=== PATIENT | female | born 1990 | race Caucasian/White ===

== ENCOUNTER 2016-10-12 01:24 | Emergency (ER) | payer OTHER ==
[2016-10-12 01:34] VITALS: BP 135/113; PULSE 112; RESP 18; TEMP 97.7; O2SAT 96
[2016-10-12] MEDS ORDERED: LORazepam 1 MG TAB PO ONE (02:56)
--- NOTE | 2016-10-12 03:01 | EDPHY ---
H & P Stated Complaint: MUSCLE CRAMPS TO L ARM AND FIDGETY ALL OVER, ANXIETY Time Seen by Provider: 10/12/16 02:29 HPI/ROS: HPI The patient presents with left-sided arm muscle spasms which have been present for the last 4 hours which is described as a jerky sensation throughout the muscles of her left arm. She does feel some tingling as well. She does not have any numbness. She tried taking a bath and doing some reading, however neither of these helped her symptoms so she comes into the emergency room. She has had several of these episodes before. 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 Her doctor did increase her lithium dose yesterday because of subtherapeutic level. She does not have any headache.. REVIEW OF SYSTEMS Constitutional: No fever, no chills. Eyes: No discharge. ENT: No sore throat. Cardiovascular: No chest pain, no palpitations. Respiratory: No cough, no shortness of breath. Gastrointestinal: No abdominal pain, no vomiting. Genitourinary: No hematuria. Musculoskeletal: No back pain. Skin: No rashes. Neurological: No headache. PMHx: Bipolar disorder, PTSD Soc Hx: Marginally housed PHYSICAL General Appearance: Alert, no distress, occasionally jerking her arm Eyes: Pupils equal and round no pallor or injection ENT, Mouth: Mucous membranes moist Respiratory: There are no retractions, lungs are clear to auscultation Cardiovascular: Regular rate and rhythm Gastrointestinal: Abdomen is soft and non-tender, no masses, bowel sounds normal Neurological: A&O, moves all extremities Skin: Warm and dry, no rashes Musculoskeletal: Neck is supple non tender Extremities: symmetrical, full range of motion of her left arm, sensation is intact to light touch Psychiatric: Patient is oriented X 3, there is no agitation Source: Patient Exam Limitations: No limitations - Personal History LMP (Females 10-55): Irregular Current Tetanus/Diphtheria Vaccine: Yes Current Tetanus Diphtheria and Acellular Pertussis (TDAP): Yes - Medical/Surgical History Hx Asthma: No Hx Chronic Respiratory Disease: No Hx Diabetes: No Hx Cardiac Disease: No Hx Renal Disease: No Hx Cirrhosis: No Hx Alcoholism: No Hx HIV/AIDS: No Hx Splenectomy or Spleen Trauma: No Other PMH: PTSD, BORDERLINE PERSONALITY, KNEE SURGERY - Social History Smoking Status: Never smoked Constitutional: Initial Vital Signs Temperature (C) 36.5 C 10/12/16 01:29 Heart Rate 112 H 10/12/16 01:29 Respiratory Rate 18 10/12/16 01:29 Blood Pressure 135/113 H 10/12/16 01:29 O2 Sat (%) 96 10/12/16 01:29 O2 Delivery Mode Room Air Allergies/Adverse Reactions: doxycycline Allergy (Verified 10/12/16 01:34) haloperidol [From Haldol] Allergy (Verified 10/12/16 01:34) haloperidol lactate [From Haldol] Allergy (Verified 10/12/16 01:34) Sulfa (Sulfonamide Antibiotics) Allergy (Verified 10/12/16 01:34) Home Medications: Medication Instructions Recorded Ciprohexadine 10/12/16 Verona Walk Carbonate [Verona Walk 1,200 mg PO BID 10/12/16 Carbonate 600 mg cap (*)] Quetiapine Fumarate [Seroquel] 200 mg PO 10/12/16 clonIDINE [Catapres (*)] 0.1 mg PO 10/12/16 Medical Decision Making Differential Diagnosis: This is a 26-year-old female with PTSD on multiple medications who presents with several hours of left arm muscle spasms. On exam, she does seem to be having some sort of spasm or voluntary jerking movement of her arm very occasionally. Her neuro exam is normal in her strength is full. She does not have any neck tenderness on exam. Differential diagnosis includes myoclonic jerk, muscle spasm, anxiety response, less likely medication side effect. The patient was monitored in the emergency room if her symptoms mostly resolved. I did offer her a dose of Ativan and initially a prescription. However, I looked her up in the PDMP and it seems that she is receiving clonazepam Ativan from several other providers, most recently 20 tabs of clonazepam yesterday. I explained this to her and that these medications interact, thus I will not start her on Ativan. She has an appointment on Saturday with her psychiatrist at the [facility] and can further follow up then. - Data Points Medications Given: Discontinued Medications Lorazepam (Ativan) 1 mg PO EDNOW ONE Stop: 10/12/16 02:57 Last Admin: 10/12/16 02:58 Dose: 1 mg Departure - Departure Disposition: Home, Routine, Self-Care Clinical Impression: Muscle spasm Condition: Good Instructions: Lorazepam (By mouth), Muscle Spasm (ED) Additional Instructions: Please follow up with your regular doctor on Saturday. Referrals: NONE *PRIMARY CARE P,. [Primary Care Provider] - As per Instructions Stand Alone Forms: School Excuse, Statement of Treatment
== END 2016-10-12 03:08 | disposition home or self-care (01) ==
DX: M62.838 Other muscle spasm (principal)